=== PATIENT | female | born 1955 | race Caucasian/White ===

== ENCOUNTER 2016-12-24 10:22 | Outpatient (CLI) | payer MEDICAID ==
--- NOTE | 2016-12-25 13:30 | Mammography Report ---
DIGITAL SCREENING MAMMOGRAM: 12/24/2016 CLINICAL INDICATION: A 61-year-old nulliparous patient, for screening. COMPARISON: 10/2009, 11/2007. TECHNIQUE: Routine CC and MLO projections were obtained of the breasts. FINDINGS: The breasts demonstrate scattered fibroglandular densities bilaterally. Coarse, typically benign calcifications are present. Intramammary lymph node is stable in the left upper outer quadrant . No suspicious masses, clustered microcalcifications, or regions of architectural distortion are vashti ntified. IMPRESSION: BENIGN FINDINGS. RECOMMENDATION: ROUTINE ANNUAL SCREENING UNLESS OTHERWISE CLINICALLY INDICATED. BIRADS CATEGORY 2-BENIGN FINDINGS. STANDARD QUALIFYING STATEMENTS 1. This examination was reviewed with the aid of Computer-Aided Detection (CAD). 2. A negative or benign imaging report should not delay biopsy if clinically suspicious findings are present. Consider surgical consultation if warranted. More than 5% of cancers are not identified by i maging. 3. Dense breasts may obscure an underlying neoplasm. JOB #: [id number] EXT JOB #:[id number]
== END 2016-12-24 10:23 | disposition home or self-care (01) ==
LOC: DI.S 10:22
PROVIDERS: ATTEND Nurse Practitioner Family
DX: Z12.31 Encounter for screening mammogram for malignant neoplasm of breast (principal)
CPT/HCPCS: 77067

== ENCOUNTER 2017-01-19 09:11 | Outpatient (CLI) | payer MEDICAID ==
--- NOTE | 2017-01-20 08:55 | DEXA Report ---
DEXA: 01/19/2017 HISTORY: Loss of height and family history of osteoporosis. TECHNIQUE: Dual energy x-ray absorptiometry (DXA) was performed on a [employer] system. Regions measured are the AP spine, femoral neck, and, if needed, forearm. COMPARISON: None. In accordance with the International Society for Clinical Densitometry (ISCD) guidelines, data from previous exams may be reanalyzed using current recommendations and techniques. This is done to allow a more accurate basis for comparison with the current study. FINDINGS The data for the lumbar spine is as follows: REGION BMD (g/cm/cm) T-SCORE Z-SCORE L1 0.800 -2.8 -1.6 L2 0.926 -2.3 -1.1 L3 0.987 -1.8 -0.6 L4 0.913 -2.4 -1.2 TOTAL 0.909 -2.3 -1.1 NOTE: All evaluable vertebrae are used for classification. The data for the hip is as follows: REGION BMD (g/cm/cm) T-SCORE Z-SCORE Neck 0.730 -2.2 -1.0 TOTAL 0.786 -1.8 -0.9 NOTE: The femoral neck or total proximal femur, whichever is lowest, is used for classification. IMPRESSION: BONE MINERAL DENSITY IN THE LEFT FEMORAL NECK AND LUMBAR SPINE, L1 THROUGH L4, IS CONSISTENT WITH OSTEOPENIA. RECOMMENDATION: Patients with diagnosis of osteoporosis or osteopenia should have regular bone mineral density assessment. For those eligible for Medicare, routine testing is allowed once every 2 years. Testing frequency can be increased for patients who have rapidly progressing disease or for those who are receiving medical therapy to restore bone mass. COMMENT: World Health Organization (WHO) definitions for osteoporosis and osteopenia: NORMAL BMD: T-score at -1.0 or higher, fracture risk is low. OSTEOPENIA BMD: T-score between -1.0 and -2.5, fracture risk is increased. OSTEOPOROSIS BMD: T-score at -2.5 or lower, fracture risk high. National Osteoporosis Foundation recommends: 1. Obtain adequate dietary calcium (at least 1200 mg per day) and vitamin D (400 -800 international units per day). 2. Participate, as appropriate, in regular weightbearing and muscle- strengthening exercise. 3. Avoid tobacco use and reduce alcohol and caffeine intake. 4. For more detailed information see the website at www.NOF.org. MTDD
== END 2017-01-19 09:12 | disposition home or self-care (01) ==
LOC: DI 09:11
PROVIDERS: ATTEND Nurse Practitioner Family
DX: R29.890 Loss of height (principal); M85.80 Other specified disorders of bone density and structure, unspecified site; Z82.62 Family history of osteoporosis
CPT/HCPCS: 77080

== ENCOUNTER 2017-06-01 09:21 | Outpatient (CLI) | payer OTHER ==
[2017-06-01 10:00] LABS: BASOPHILS # (AUTO) 0.1 10^3/uL (0.0-0.1); EOSINOPHILS # (AUTO) 0.1 10^3/uL (0.0-0.7); HGB - HEMOGLOBIN 13.7 g/dL (12.0-16.0); LYMPHOCYTES # (AUTO) 2.2 10^3/uL (1.5-3.5); LYMPHOCYTES % (AUTO) 33.3 %; MEAN CORPUSCULAR HEMOGLOBIN 31.3 pg (27.0-31.0); MEAN CORPUSCULAR HGB CONC 34.1 g/dL (32.0-36.0); MEAN CORPUSCULAR VOLUME 91.8 fL (81.0-99.0); MEAN PLATELET VOLUME 7.1 fL (7.9-10.8); MONOCYTES # (AUTO) 0.5 10^3/uL (0.0-1.0); MONOCYTES % (AUTO) 7.2 %; NEUTROPHILS # (AUTO) 3.8 10^3/uL (1.5-6.6); NEUTROPHILS % (AUTO) 56.5 %; PLT - PLATELET COUNT 264 10^3/uL (130-450); RED BLOOD COUNT 4.37 10^6/uL (4.20-5.40); RED CELL DISTRIBUTION WIDTH 13.2 % (12.0-15.0); WHITE BLOOD COUNT 6.8 x10^3/uL (4.8-10.8)
[2017-06-01 11:00] LABS: ALBUMIN 4.2 g/dL (3.2-5.5); ALBUMIN/GLOBULIN RATIO 1.4 (1.0-2.2); ALKALINE PHOSPHATASE 52 IU/L (42-121); ALT ALANINE AMINOTRANSFERASE 16 IU/L (10-60); AST ASPARTATE AMINOTRANSFERASE 18 IU/L (10-42); BILIRUBIN,TOTAL 0.6 mg/dL (0.2-1.0); BUN - BLOOD UREA NITROGEN 21 mg/dL (6-20); CALCIUM 9.5 mg/dL (8.5-10.3); CARBON DIOXIDE - CO2 29 mmol/L (21-32); CHLORIDE 103 mmol/L (101-111); CHOL/HDL RATIO 5.3 (<4.4); CHOLESTEROL 264 mg/dL; CREATININE 0.8 mg/dL (0.4-1.0); GFR - MDRD 73 (>89); GLUCOSE 98 mg/dL (70-100); HDL CHOLESTEROL 50 mg/dL; LDL CHOLESTEROL,CALCULATED 184 mg/dL; LDL/HDL RATIO 3.7 (<4.4); SODIUM 138 mmol/L (135-145); TOTAL PROTEIN 7.3 g/dL (6.7-8.2); VLDL CHOLESTEROL 30 mg/dL
== END 2017-06-01 09:22 | disposition home or self-care (01) ==
LOC: LAB 09:21
PROVIDERS: ATTEND Nurse Practitioner Family
DX: I10 Essential (primary) hypertension (principal)
CPT/HCPCS: 36415; 80053; 80061; 83721; 84443; 85025

== ENCOUNTER 2022-09-01 10:20 | Emergency (ER) | payer MEDICARE, OTHER ==
--- NOTE | 2022-09-01 10:49 | XRAY Report ---
PROCEDURE: Foot 3 View RT INDICATIONS: Trauma TECHNIQUE: 3 views of the foot were acquired. COMPARISON: None. FINDINGS: Bones: Fracture through base of fifth metatarsal bone is seen with proximal displacement and up to 3 mm diastases at fracture site. Fracture line is noted extending to fifth TMT joint space. No suspici ous bony lesions. Soft tissues: Soft tissue swelling over fifth metatarsal base fracture site is noted. No suspicious soft tissue calcifications or masses. IMPRESSION: Acute slightly displaced fracture through fifth metatarsal base as above. Reviewed by: Marc Denney MD on 09/01/2022 10:48 AM PDT Approved by: Marc Denney MD on 09/01/2022 10:48 AM PDT Station ID: [id number]
--- NOTE | 2022-09-01 12:14 | ED Physician Documentation ---
PD HPI LOWER EXT INJURY - Stated complaint Stated Complaint: RT FT INJ - Chief complaint Chief Complaint: Trauma Ext - History obtained from History obtained from: Patient - Additional information Additional information: Patient is a 67-year-old female presenting for evaluation of right foot pain. Patient states around 9:00 last night she tripped over a slipper on the stair and stumbled. She did not hit her head. She has been having pain into the lateral aspect of the right foot. She has been able to ambulate with a Walking boot that she had at home from a prior injury. She does not take a blood thinner. Review of Systems Constitutional: denies: Fever Cardiac: denies: Chest pain / pressure Respiratory: denies: Dyspnea GI: denies: Abdominal Pain Musculoskeletal: reports: Extremity pain Neurologic: denies: Head injury PD PAST MEDICAL HISTORY - Past Medical History Past Medical History: No - Past Surgical History Past Surgical History: No - Present Medications Home Medications: Ambulatory Orders Medication Instructions Recorded Confirmed Oxycodone HCl/Acetaminophen 1 each PO Q6H PRN #10 tablet 09/01/22 [Percocet 5-325 mg Tablet] - Allergies Allergies/Adverse Reactions: Allergies Allergy/AdvReac Type Severity Reaction Status Date / Time No Known Drug Allergies Allergy Verified 09/01/22 10:31 - Social History Does the pt smoke?: No Smoking Status: Never smoker Does the pt drink ETOH?: No Does the pt have substance abuse?: No - Immunizations Immunizations are current?: No Immunizations: TDAP >10years/unknown PD ED PE NORMAL - General General: Alert and oriented X 3, No acute distress, Well developed/nourished - HEENT HEENT: Atraumatic - Cardiac Cardiac: Strong equal pulses - Respiratory Respiratory: No respiratory distress - Derm Derm: Warm and dry - Extremities Extremities: Other (Tenderness to lateral aspect of right foot) Results - Vitals Vitals: Vital Signs - 24 hr 09/01/22 09/01/22 10:27 12:32 Temperature 36.0 C L 36.1 C L Heart Rate 75 72 Respiratory 16 16 Rate Blood Pressure 177/97 H 166/88 H O2 Saturation 97 98 Oxygen O2 Source Room air PD Medical Decision Making - ED course Complexity details: reviewed results, d/w patient ED course: Patient with an injury to her right foot. I reviewed her x-ray and see a fracture at the base of the fifth metatarsal. Discussed recommendations for a hard soled shoe. Will provide crutches to use as needed But patient is aware that she can weight-bear as tolerated. She is also aware of need for close follow-up with orthopedic surgeon. She declined any need for pain medications here but was provided a prescription for home. Patient counseled on concerning symptoms to return for. No head injury or pain elsewhere. Departure - Departure Disposition: Home, Self Care Clinical Impression: Fracture of metatarsal bone of left foot Qualifiers: Encounter type: initial encounter Metatarsal bone: fifth Fracture type: closed Condition: Stable Instructions: ED Fx Foot Prescriptions: Oxycodone HCl/Acetaminophen [Percocet 5-325 mg Tablet] 1 each PO Q6H PRN #10 tablet PRN Reason: pain Comments: Your x-ray shows that you do have a fracture in your foot. We are going to place you into a special shoeAnd would recommend close follow-up with our local orthopedic surgeon, Dr. Esparza. We will also provide you with crutches to use as needed but you are able to bear weight if you are able to tolerate it. I also sent a small amount of narcotic pain medication to [facility] in [place]. I am prescribing a short course of narcotic pain medication for you. These are potentially dangerous and addictive medications that should be used carefully. These medications may constipate you. Take an rjmv-zgh-[id number] stool softener (docusate) twice daily with plenty of water while taking these medications. If you go 24 hours without a bowel movement, take gyxc-efy-vraiskg miralax, per package instructions. Do not drink or drive while taking these medications. If you received narcotic or sedating medications while in the emergency departm ent, do not drive for 24 hours. Store this medication in a safe, secure place and out of reach of children. It is a violation of federal law to give or sell this medication to another person or to use in a manner other than prescribed. The ED will not refill narcotic prescriptions, including prescriptions lost or stolen. To dispose of unwanted medications: 1. [facility] [address] [facility] [place] has a medication drop box. They accept prescription medications (in pill form) Wednesday through Wednesday 9:00 a.m. to 5:00 p.m. 2. The [facility] accepts prescription medications (in pill form only) for disposal year round. Call for more information. 3. Contact the [facility] for the next [facility] sponsored prescription drug collection event. , [phone], or [phone]; Note that many narcotic pain relievers also contain Tylenol/acetaminophen. Please ensure that your total dose of acetaminophen from all sources does not exceed 3 g (3000 mg) per day. IMPRESSION: Acute slightly displaced fracture through fifth metatarsal base as above. Discharge Date/Time: 09/01/22 12:32
[2022-09-01 12:33] VITALS: BP 166/88
== END 2022-09-01 12:32 | disposition home or self-care (01) ==
LOC: ED 10:20
DX: S92.351A Displaced fracture of fifth metatarsal bone, right foot, initial encounter for closed fracture (principal); W22.8XXA Striking against or struck by other objects, initial encounter
CPT/HCPCS: 99283

== ENCOUNTER 2022-09-08 15:00 | Outpatient (CLI) | payer MEDICARE ==
--- NOTE | 2022-09-08 13:13 | XRAY Report ---
PROCEDURE: Foot 3 View RT INDICATIONS: RIGHT FOOT PAIN TECHNIQUE: 3 views of the foot were acquired. COMPARISON: 09/01/2022 FINDINGS: Bones: Redemonstrated transverse fracture at the base of the fifth metatarsal. Mild increase in dist raction of fracture fragments since the prior exam. Small amount of periosteal new bone formation lik ricardo present. Soft tissues: No suspicious soft tissue calcifications. IMPRESSION: Mild increase in distraction of the previously demonstrated fifth metatarsal fracture. Reviewed by: Kang Flores MD on 09/08/2022 1:12 PM PDT Approved by: Kang Flores MD on 09/08/2022 1:12 PM PDT Station ID: [id number]
== END 2022-09-08 15:02 | disposition home or self-care (01) ==
LOC: DI.WOS 15:00
PROVIDERS: ATTEND Physician Assistant Surgical
DX: S92.351A Displaced fracture of fifth metatarsal bone, right foot, initial encounter for closed fracture (principal)

== ENCOUNTER 2022-10-13 08:00 | Outpatient (CLI) | payer MEDICARE ==
--- NOTE | 2022-10-13 14:07 | XRAY Report ---
PROCEDURE: Foot 3 View RT INDICATIONS: RIGHT 5TH MT FRACTURE TECHNIQUE: 3 views of the foot were acquired. COMPARISON: 09/08/2022, 09/01/2022 FINDINGS: Bones: Again noted is displaced fifth metatarsal base fracture with small amount of callus formation at fracture site in up to 5 mm diastases. No new fracture or dislocation. Osteoarthritic changes are noted throughout right foot. No suspicious bony lesions. Soft tissues: No suspicious soft tissue calcifications or masses. IMPRESSION: Interval slight healing at fifth metatarsal base fracture site. Stable right foot alignment. No new f racture or dislocation. Right foot osteoarthritis. Reviewed by: Marc Denney MD on 10/13/2022 2:05 PM PDT Approved by: Marc Denney MD on 10/13/2022 2:05 PM PDT Station ID: [id number]
== END 2022-10-13 23:59 | disposition home or self-care (01) ==
LOC: DI.WOS 08:00
PROVIDERS: ATTEND Physician Assistant Surgical
DX: S92.351D Displaced fracture of fifth metatarsal bone, right foot, subsequent encounter for fracture with routine healing (principal); M19.071 Primary osteoarthritis, right ankle and foot